=== PATIENT | female | born 1955 | race Caucasian/White ===

== ENCOUNTER → 2016-05-15 | Outpatient (CLI) | payer BC ==
--- NOTE | 2016-05-15 14:32 | US ---
Pelvic Ultrasound Indication: Pelvic pain and bloating. Comparison: None. Technique: Transabdominal and transvaginal imaging. Findings: Transabdominal Imaging: The anteverted uterus is normal size measuring 6.2 cm in length x 4.1 x 2.6 cm. No adnexal mass or free fluid. Transvaginal Imaging: A smooth round minimally echogenic nodular focus of soft tissue at the apex of the endometrial cavity, measuring 7 x 6 x 7 mm may represent a small endometrial polyp versus submuc osal uterine leiomyoma. The endometrial lining is otherwise homogeneous and thin (1 to 2 mm). The ovaries are normal size with small peripheral follicles and normal blood flow on Color Doppler im aging. No adnexal mass or suspicious ovarian cyst. The right ovary measures 1.8 x 1.1 x 1.1 cm. The left ovary measures 3.1 x 1.9 x 1.6 cm. No free fluid or pelvic varices. Impression: 1. Small endometrial polyp versus intracavitary submucosal leiomyoma at the apex of the endometrial c avity. Recommend follow up ultrasound in 6 months versus [employer] consultation. 2. Normal ovaries. No adnexal mass, pelvic varices or free fluid. A Follow-Up Required test result notification was sent via the [employer] service, 2:00:02 PM, 05/15/2016 , [facility] Message ID [id number].
== END ==
LOC: BMCIMAGING 11:00
PROVIDERS: ATTEND Internal Medicine
DX: R10.2 Pelvic and perineal pain (principal)